=== PATIENT | female | born 1975 | race Caucasian/White ===

== ENCOUNTER → 2018-01-18 | Outpatient (CLI) | payer BC ==
--- NOTE | 2018-01-18 10:03 | US ---
History: Abdominal pain, nausea, vomiting. Exam: Right upper quadrant ultrasound examination. Technique: Grayscale and Doppler images of the RUQ were performed. Comparison: None. Findings: The liver is unremarkable in appearance. No dominant liver mass lesions are seen. There is no intrahepatic or extrahepatic biliary ductal dilatation. There is a small 3 mm polyp in the gallbla dder without evidence for gallstones or acute cholecystitis. No gallbladder wall thickening or perich olecystic fluid is seen. The common bile duct is within normal limits, measuring 4 mm. There is mild- to-moderate right-sided hydronephrosis which can be correlated with CT imaging. No renal mass lesions are seen. The right kidney measures 9 x 4 x 4 cm. The IVC is unremarkable. The pancreas is grossly u nremarkable. The pancreatic tail is obscured by overlying stool and bowel gas. No ascites or loculate d fluid collection is appreciated. Impression: 1. Small 2-3 mm gallbladder polyp without evidence for gallstones or acute cholecystitis. Gallbladder ultrasound follow-up in 6-12 months is recommended for assurance. 2. [id number] right-sided hydronephrosis which can be correlated with CT imaging. No solid soren l mass lesions are seen. The right kidney measures 9 x 4 x 4 cm. Reported By:
== END ==
LOC: RAD 08:45
PROVIDERS: ATTEND Internal Medicine
DX: R10.11 Right upper quadrant pain (principal)
CPT/HCPCS: 76705

== ENCOUNTER 2018-01-21 19:22 | Emergency (ER) | payer BC ==
[2018-01-21 19:40] VITALS: BP 121/56; BMI 25.4
--- NOTE | 2018-01-21 21:41 | DR.GENAD ---
HPI - PCP Primary Care Physician: DAWIT - Complaint/Symptoms Chief Complaint:: "I TOUCHED A BAT YESTERDAY AND I DON'T KNOW IF HE BIT ME OR NOT. I'M AFRAID OF RABIES." Self Treatment fo Chief Complaint: NONE - Nurses notes reviewed Nurses Notes Review: Yes - Source History Provided: Patient - Mode of Arrival Mode of Arrival: Ambulatory - Timing Onset of Chief Complaint: 01/21/18 Came on: Suddenly - Duration Duration: Constant How lon Duration: Hours - Location Location: right finger - Severity Severity: None - Associated Signs and Symptoms Associated Signs and Symptoms: also scrathed by wild cat on left leg today PMH - PMH Past Medical History: No Past Surgical History: Yes Past Surgical History Comment: BREAST IMPLANTS - Family History History of Family Medical Conditions: No - Social History Does patient currently use any type of tobacco product: No Have you used tobacco products in the last 12 months: No Type of Tobacco Use: None Does any household member use tobacco: No Alcohol Use: None Do you use any recreational Drugs:: No Lives With: Spouse Lives Where: Home - infectious screening In the last 2 months have you had wt loss of >10#?: NO Have you had fever, night sweats or hemotysis?: No Have you traveled outside the country in the last 6 months?: No Isolation: Standard ROS - Review of Systems Constitutional: No Symptoms Reported Eyes: No Symptoms Reported ENTM: No Symptoms Reported Respiratoy: No Symptoms Reported Cardiovascular: No Symptoms Reported Gastrointestinal/Abdominal: No Symptoms Reported Genitourinary: No Symptoms Reported Neurological: No Symptoms Reported Musculoskeletal: No Symptoms Reported Integumentary: Other (scratches left thigh) Endocrine: No Symptoms Reported Psychiatric: No Symptoms Reported All Other Systems: Reviewed and Negative PE - Vital Signs Vitals: Temperature 100.0 F Pulse Rate 59 Respiratory Rate 18 Blood Pressure 121/56 O2 Sat by Pulse Oximetry 98 - General Limitations: No Limitations General Appearance: Alert, In No Apparent Distress - Head Head Exam: Normal Inspection - Eyes Eye exam: Normal Appearance, EOMI. negative: Scleral Icterus, Conjunctival Injection - ENT ENT Exam: Normal Exam - Neck Neck Exam: Normal Inspection - Respiratory Respiratory Exam: negative: Respiratory Distress - Cardiovascular Cardiovascular Exam: Regular Rate - Abdominal Exam Abdominal Exam: Normal Inspection - Extremities Extremities Exam: Normal Inspection, Full ROM. negative: Tenderness, Edema - Neurologic Neurological Exam: Alert, Oriented X3, CN II-XII Intact - Psychiatric Psychiatric Exam: Normal Affect, Normal Mood - Skin Skin Exam: Normal Color. negative: Intact (scrathes left thigh) - Discharge Plan Condition: Stable - Follow ups/Referrals Follow ups/Referrals: Jericho Cameron [Primary Care Provider] - 3 days - Instructions
[2018-01-21] MEDS ORDERED: HYPERRAB INFIL ONE (21:42)
[2018-01-21] MEDS ORDERED: RABAVERT IM ONE (21:42)
== END 2018-01-21 22:50 | disposition home or self-care (01) ==
LOC: ER 19:47
DX: S70.312A Abrasion, left thigh, initial encounter (principal); W55.03XA Scratched by cat, initial encounter; Y92.9 Unspecified place or not applicable
CPT/HCPCS: 90471; 90472; 99282

== ENCOUNTER → 2018-01-25 | Outpatient (CLI) | payer BC ==
[~2018-01-25] MED LIST: NS 100 ML IV 100 ML IV ONE
--- NOTE | 2018-01-25 12:08 | CT ---
HISTORY: Right upper quadrant pain Study: CT abdomen with contrast Comparison: Gallbladder ultrasound performed on January 18, 2018 Technique: Multiple axial images of the abdomen were obtained from the lung bases to the iliac crests with the a dministration of IV contrast. Dose reduction techniques including automated exposure control (AEC) a nd adjustment of mA and kV were utilized. Findings: The visualized portions of the lung bases are unremarkable. A subcentimeter focus of decreased attenu ation within the right hepatic lobe is too small to accurately characterize. The spleen, pancreas, ad renals, and left kidney are unremarkable in appearance. Images demonstrate a mild to moderately dilat ed right extrarenal pelvis similar to findings noted on previous ultrasound performed on January 18 8. If symptoms or clinical concern persist recommend continued follow-up for further evaluation. A sm all umbilical hernia containing fat is noted. IMPRESSION: Mild to moderately dilated right extrarenal pelvis as noted above. Small umbilical hernia containing fat. Reported By:
== END ==
LOC: RAD 10:30
PROVIDERS: ATTEND Internal Medicine
DX: R93.5 Abnormal findings on diagnostic imaging of other abdominal regions, including retroperitoneum (principal); R10.11 Right upper quadrant pain
CPT/HCPCS: 74160; A4222